=== PATIENT | female | born 1985 | race African-American/Black ===

== ENCOUNTER 2017-11-11 10:49 | Emergency (ER) | payer OTHER ==
[~2017-11-11] VITALS: Ht 162.6 cm; Wt 69.4 kg
[2017-11-11 10:52] VITALS: BP 112/88
[2017-11-11 11:23] LABS: APPEARANCE,URINE CLEAR (CLEAR); BILIRUBIN,URINE 2+ (NEGATIVE); BLOOD, URINE 3+ (NEGATIVE); COLOR,URINE YELLOW (YELLOW); LEUKOCYTE ESTERASE ,URINE TRACE (NEGATIVE); NITRITE, URINE NEGATIVE (NEGATIVE); UGLUCOSE NEGATIVE (NEGATIVE)
[2017-11-11 11:35] LABS: RBC,URINE 3-10 (FEW) /HPF (0-5); WBC,URINE 0-5 (RARE) /HPF (0-5)
[2017-11-11] MEDS: ONDANSETRON 4 MG ODT PO ONE (12:01)
[2017-11-11] MEDS: NACL 0.9% 1,000 ML IV ONE (12:31)
[2017-11-11] MEDS: ONDANSETRON 4 MG/2 ML VIAL IVP ONE (12:32)
[2017-11-11 13:20] VITALS: BP 109/67
== END 2017-11-11 13:20 | disposition home or self-care (01) ==
LOC: MED 10:49
DX: O21.9 Vomiting of pregnancy, unspecified (principal); R10.13 Epigastric pain
CPT/HCPCS: 81001; 81025; 96361; 96374; 99284; J2405; J7030; S0119

== ENCOUNTER 2020-08-11 09:58 | Emergency (ER) | payer OTHER ==
[~2020-08-11] VITALS: Ht 167.6 cm; Wt 71.2 kg
[2020-08-11 10:04] VITALS: BP 112/77
[2020-08-11] MEDS ORDERED: KETOROLAC 30 MG/ML VIAL IVP ONE (10:15)
[2020-08-11] MEDS ORDERED: ONDANSETRON 4 MG/2 ML VIAL IVP ONE (10:15)
[2020-08-11] MEDS ORDERED: NACL 0.9% 1,000 ML IV ONE (10:15)
--- NOTE | 2020-08-11 10:17 | NUR ---
34 YEAR OLD FEMALE COMPLAINS OF ABDOMINAL PAIN, NAUSEA, AND VOMTITING X 5 DAYS. PT AOX4, BREATHING EVEN AND UNLABORED, SKIN WARM AND DRY. BED IN LOWEST POSITION, LOCKED, BED RAIL UPX1. PMH - GASTRITIS ALLERGIES - NKA
[2020-08-11] MEDS ORDERED: PANTOPRAZOLE 40 MG INJ VIAL IVP ONE (10:30)
[2020-08-11 10:44] LABS: BASOPHILS % (AUTO) 0.3 % (0.0-2.0); EOSINOPHILS % (AUTO) 0.1 % (0.0-4.0); HEMATOCRIT 34.3 % (36-48); HEMOGLOBIN 10.9 g/dL (12.0-16.0); LYMPHOCYTES # (AUTO) 1.5 K/uL (2.5-16.5); LYMPHOCYTES % (AUTO) 13.2 % (20.5-51.1); MEAN CORPUSCULAR HEMOGLOBIN 25 pg (27-31); MEAN CORPUSCULAR HGB CONC 32 g/dL (33-37); MEAN CORPUSCULAR VOLUME 79.4 fL (80-94); MONOCYTES # (AUTO) 1.4 K/uL (0.8-1.0); MONOCYTES % (AUTO) 12.4 % (1.7-9.3); NEUTROPHILS # (AUTO) 8.4 K/uL (1.8-7.7); PLATELET COUNT (AUTO) 195 K/uL (140-450); RED BLOOD CELL COUNT(AUTO) 4.32 MIL/uL (4.20-5.40); RED CELL DISTRIBUTION WIDTH 13.9 % (11.6-13.7); WHITE BLOOD COUNT (AUTO) 11.3 K/uL (4.8-10.8)
--- NOTE | 2020-08-11 10:51 | NUR ---
PT DECLINED GARRETT AT THIS TIME, ERMD MADE AWARE
[2020-08-11 11:18] LABS: ALBUMIN 2.9 g/dL (3.4-5.0); CARBON DIOXIDE 26.7 mmol/L (21-32); TOTAL BILIRUBIN 1.5 mg/dL (0.0-1.0)
[2020-08-11 11:19] LABS: POTASSIUM 2.7 mmol/L (3.5-5.1)
[2020-08-11] MEDS ORDERED: POTASSIUM CHLORIDE 10 MEQ TABER PO ONE (13:05)
--- NOTE | 2020-08-11 13:11 | NUR ---
PT STATES PAIN IS STARTING TO COME BACK. ERMD MADE AWARE
[2020-08-11] MEDS ORDERED: MORPHINE SULFATE 2 MG/ML SYR IVP ONE (13:20)
[2020-08-11] MEDS ORDERED: metroNIDAZOLE 500 MG/NS PREMIX 100 ML IV ONE (13:20)
[2020-08-11] MEDS ORDERED: methylPREDNISolone SS 125 MG/2 ML VIAL IVP ONE (13:20)
[2020-08-11] MEDS ORDERED: cefTRIAXone 1,000 MG VIAL ONE (13:37)
[2020-08-11] MEDS ORDERED: NACL 0.9% 500 ML IV ONE (13:45)
[2020-08-11 15:30] VITALS: BP 108/76
--- NOTE | 2020-08-11 15:30 | NUR ---
Patient discharged with v/s stable. Written and verbal after care instructions about colitis given and explained. Patient alert, oriented and verbalized understanding of instructions. Ambulatory with steady gait. All questions addressed prior to discharge. ID band removed. Patient advised to follow up with PMD. Rx of cipro, zofran, prednisone given. Patient educated on indication of medication including possible reaction and side effects. Opportunity to ask questions provided and answered.
--- NOTE | 2020-08-13 17:39 | NUR ---
LATE ENTRY -- NORMAL SALINE INFUSION COMPELTED AT 1504 08/11/20
== END 2020-08-11 15:35 | disposition home or self-care (01) ==
LOC: MED 09:58
DX: K52.89 Other specified noninfective gastroenteritis and colitis (principal); K21.9 Gastro-esophageal reflux disease without esophagitis
CPT/HCPCS: 36415; 74176; 80053; 81025; 83690; 85025; 87040; 96365; 96367; 96375; 99284; C9113; J0696; J1885; J2270; J2405; J2930; J3490; J7030; 99285

== ENCOUNTER 2021-10-18 15:48 | Emergency (ER) | payer OTHER ==
[~2021-10-18] VITALS: Ht 157.5 cm; Wt 86.2 kg
[2021-10-18 15:51] VITALS: BP 127/77
--- NOTE | 2021-10-18 16:00 | NUR ---
PA Steele at bedside evaluating pt
[2021-10-18] MEDS ORDERED: ONDANSETRON 4 MG ODT PO ONE (16:15)
[2021-10-18] MEDS ORDERED: LIDOCAINE MPF 1% 10 MG/ML VIAL INJ ONE (16:15)
[2021-10-18] MEDS ORDERED: KETOROLAC 30 MG/ML VIAL IM ONE (16:15)
[2021-10-18] MEDS ORDERED: HYDROcodone/APAP 5/325 MG 1 TAB TAB PO ONE (16:15)
--- NOTE | 2021-10-18 16:18 | NUR ---
36 y/o female came in for c/o possible spider bite to sacral area. Patient states pain is 10/10. Patient denies fever/chills or drainage. Took ibuprofen with no relief. Medical History: GASTRITIS NKA
--- NOTE | 2021-10-18 17:00 | NUR ---
I&D Procedure done by delores Steele. Minimal amt of bleeding noted. Wound packed with IODOFORM. DSD applied. Pt tolerated procedure. Wound care discussed w/ patient.
[2021-10-18] MEDS ORDERED: SULF-59 PO (17:17)
[2021-10-18] MEDS ORDERED: CEPH-588 PO (17:17)
[2021-10-18] MEDS ORDERED: ACET-8386 PO (17:17)
[2021-10-18] MEDS ORDERED: IBUP-2213 PO (17:17)
[2021-10-18 17:30] VITALS: BP 127/77
--- NOTE | 2021-10-18 17:30 | NUR ---
Patient discharged with v/s stable. Written and verbal after care instructions given. Patient alert, oriented and verbalized understanding of instructions. Ambulatory with steady gait. All questions addressed prior to discharge. ID band removed. Patient advised to follow up with PMD. Rx of Hydrocodone-Acetaminophen 5-325, Keflex, Ibuprofen and Bactrim DS Tablet given. Opportunity to ask questions provided and answered.
== END 2021-10-18 17:30 | disposition home or self-care (01) ==
LOC: MED 15:48
DX: K61.1 Rectal abscess (principal); R03.0 Elevated blood-pressure reading, without diagnosis of hypertension; K21.9 Gastro-esophageal reflux disease without esophagitis; Z79.899 Other long term (current) drug therapy
CPT/HCPCS: 46040; 96372; 99284; J1885; J2001; Q0162

== ENCOUNTER 2021-10-20 08:08 | Emergency (ER) | payer OTHER ==
[~2021-10-20] VITALS: Ht 170.2 cm; Wt 88.9 kg
[~2021-10-20 08:08] MED LIST: ACET-8386 PO; CEPH-588 PO; IBUP-2213 PO; SULF-59 PO
[2021-10-20 08:14] VITALS: BP 128/90
--- NOTE | 2021-10-20 08:21 | NUR ---
PATIENT PLACED IN BED 3, PATIENT AMBULATED SELF. GOWN PROVIDED AND INFORMED PATIENT TO CHANGE INTO GOWN PRIOR TO DOCTOR EXAM
--- NOTE | 2021-10-20 08:45 | NUR ---
DR PAUL AT PATIENT BEDSIDE
[2021-10-20 09:13] VITALS: BP 128/90
== END 2021-10-20 09:13 | disposition home or self-care (01) ==
LOC: MED 08:08
DX: L02.31 Cutaneous abscess of buttock (principal); K21.9 Gastro-esophageal reflux disease without esophagitis; Z79.1 Long term (current) use of non-steroidal anti-inflammatories (NSAID); Z79.891 Long term (current) use of opiate analgesic; Z79.2 Long term (current) use of antibiotics
CPT/HCPCS: 99281

== ENCOUNTER 2022-10-03 10:53 | Emergency (ER) | payer OTHER ==
[~2022-10-03] VITALS: Ht 157.5 cm; Wt 87.1 kg
[~2022-10-03 10:53] MED LIST changes: -ACET-8386 PO; +ACET-8905 PO
[2022-10-03 11:03] VITALS: BP 119/72
--- NOTE | 2022-10-03 12:28 | NUR ---
PT AMB TO BED 7
--- NOTE | 2022-10-03 12:30 | NUR ---
DEIDRA WALKER AT BEDSIDE FOR EVALUATION
[2022-10-03] MEDS ORDERED: KETOROLAC 30 MG/ML VIAL IM ONE (12:35)
[2022-10-03] MEDS ORDERED: CEPH-588 PO (12:35)
[2022-10-03] MEDS ORDERED: NAPR-1704 PO (12:35)
--- NOTE | 2022-10-03 12:35 | NUR ---
37YO FEMALE PT C/O BUMP X4DAYS. PRESENTS WITH BUMP IN L UPPER GLUTE, HARD AND TENDER TO TOUCH. DENIES DRAINAGE, N/V/D, FEVER OR CHILLS. PT AAOX4, HOB POSITIONED PER COMFORT. HX:GASTRITIS NKA
--- NOTE | 2022-10-03 12:48 | NUR ---
Patient discharged with v/s stable. Written and verbal after care instructions FOR PILONIDAL CYST given and explained. Patient alert, oriented and verbalized understanding of instructions. Ambulatory with steady gait. All questions addressed prior to discharge. ID band removed. Patient advised to follow up with PMD. Rx of KEFLEX AND NAPROXEN given. Opportunity to ask questions provided and answered.
--- NOTE | 2022-10-03 13:00 | NUR ---
The patient's care was reviewed and supervised by Denia Herring RN.
== END 2022-10-03 12:48 | disposition home or self-care (01) ==
LOC: MED 10:53
DX: L05.91 Pilonidal cyst without abscess (principal); Z79.899 Other long term (current) drug therapy
CPT/HCPCS: 81025; 96372; 99283; J1885

== ENCOUNTER 2022-10-05 19:24 | Emergency (ER) | payer OTHER ==
[~2022-10-05] VITALS: Ht 147.3 cm; Wt 88.0 kg
[~2022-10-05 19:24] MED LIST changes: +NAPR-1704 PO
[2022-10-05 20:03] VITALS: BP 108/85
--- NOTE | 2022-10-05 20:10 | NUR ---
TO LOBBY FOLLOWING TRIAGE
--- NOTE | 2022-10-05 22:30 | NUR ---
PT WAS SEEN HERE 2 DAYS AGO FOR POSSIBLE PILONIDAL CYST. PAIN IS NOW WORSE
--- NOTE | 2022-10-05 22:47 | NUR ---
PT AMBULATED TO BED 03.
[2022-10-05] MEDS ORDERED: oxyCODONE/APAP 5/325 MG 1 TAB TAB PO ONE (23:05)
[2022-10-05] MEDS ORDERED: LIDOCAINE 2% 1000 MG/50 ML VIAL INJ ONE (23:25)
[2022-10-05] MEDS ORDERED: cefTRIAXone 250 MG VIAL ONE (23:52)
[2022-10-05] MEDS ORDERED: cefTRIAXone 500 MG VIAL ONE (23:52)
--- NOTE | 2022-10-06 00:10 | NUR ---
Procedure - I & D by Dr. Madrid.
[2022-10-06] MEDS ORDERED: AMOX1TAB8 PO (00:25)
[2022-10-06] MEDS ORDERED: ACET-5629 PO (00:25)
[2022-10-06] MEDS ORDERED: NAPR-54 PO (00:25)
[2022-10-06 00:39] VITALS: BP 108/85
--- NOTE | 2022-10-06 00:39 | NUR ---
Patient discharged with v/s stable. Written and verbal after care instructions given and explained. Patient alert, oriented and verbalized understanding of instructions. Ambulatory with steady gait. All questions addressed prior to discharge. ID band removed. Patient advised to follow up with PMD. Rx of Percocet, Amox-Clav and Naproxen given. Patient educated on indication of medication including possible reaction and side effects. Opportunity to ask questions provided and answered.
== END 2022-10-06 00:39 | disposition home or self-care (01) ==
LOC: MED 19:24
DX: L05.91 Pilonidal cyst without abscess (principal); Z79.1 Long term (current) use of non-steroidal anti-inflammatories (NSAID); Z79.891 Long term (current) use of opiate analgesic; Z79.2 Long term (current) use of antibiotics
CPT/HCPCS: 10080; 99283; J0696; J2001

== ENCOUNTER 2022-10-08 11:49 | Emergency (ER) | payer OTHER ==
[~2022-10-08] VITALS: Ht 157.5 cm; Wt 88.5 kg
[~2022-10-08 11:49] MED LIST changes: +ACET-5629 PO; +AMOX1TAB8 PO; +NAPR-54 PO
[2022-10-08 12:14] VITALS: BP 110/68
--- NOTE | 2022-10-08 12:30 | NUR ---
37 Y/O FEMALE BIB SELF PRESENTS TO ED FOR WOUND CHECK, INCISION AND DRAINAGE DONE ON 10/06/22 IN THE MIDDLE OF THE BUTTOCKS, DENIES ANY NVD, FEVERS, CHILLS NKA PMH: DENIES
--- NOTE | 2022-10-08 13:27 | NUR ---
WOUND IN BETWEEN BUTTOCKS DRESSED WITH GAUZE PADS, NON ADHERENT AND BANDAGED WITH LARGE TAGADERM
--- NOTE | 2022-10-08 13:29 | NUR ---
Patient discharged with v/s stable. Written and verbal after care instructions given and explained. Patient verbalized understanding. Ambulatory with steady gait. All questions addressed prior to discharge. Advised to follow up with PMD.
== END 2022-10-08 15:29 | disposition home or self-care (01) ==
LOC: MED 11:49
DX: L05.01 Pilonidal cyst with abscess (principal); Z79.899 Other long term (current) drug therapy
CPT/HCPCS: 99281